=== PATIENT | female | born 1995 | race Caucasian/White ===

== ENCOUNTER 2018-01-23 10:25 | Emergency (ER) | payer MEDICAID, OTHER ==
[~2018-01-23] VITALS: Ht 160 cm; Wt 58.0 kg
[2018-01-23] MEDS ORDERED: ONDANSETRON ODT 4 MG PO ONE (11:30)
[2018-01-23 11:51] LABS: BASOPHILS # (AUTO) 0.08 x10^3/uL (0-0.3); BASOPHILS % (AUTO) 1 % (0-1); EOSINOPHILS # (AUTO) 0.05 x10^3/uL (0-0.8); EOSINOPHILS % (AUTO) 1 % (1-7); LYMPHOCYTES # (AUTO) 1.36 x10^3/uL (1-6.1); LYMPHOCYTES % (AUTO) 17 % (22-44); MD NO; MEAN CORPUSCULAR HEMOGLOBIN 30.6 pg (27.0-34.8); MEAN CORPUSCULAR HGB CONC 34.2 g/dL (32.4-35.8); MEAN CORPUSCULAR VOLUME 89.4 fL (80-100); MEAN PLATELET VOLUME 8.6 fL (7.4-10.4); MONOCYTES # (AUTO) 0.43 x10^3/uL (0-1.4); MONOCYTES % (AUTO) 5 % (2-9); NEUTROPHILS # (AUTO) 6.18 x10^3/uL (1.8-8.0); NEUTROPHILS % (AUTO) 76 % (42-75); PLATELET COUNT 259 x10^3/uL (130-400); RED BLOOD COUNT 4.96 x10^6/uL (3.82-5.3); RED CELL DISTRIBUTION WIDTH 13.3 % (9.6-15.2)
[2018-01-23 12:14] LABS: HCG UR SG 1.011 (1.003-1.030)
[2018-01-23 12:37] LABS: ANION GAP 10 mmol/L (5-15); CALCIUM 9.1 mg/dL (8.5-10.1); CHLORIDE 110 mmol/L (98-107)
[2018-01-23 12:40] LABS: ALANINE AMINOTRANSFERASE 24 U/L (12-78); CREATININE 0.55 mg/dL (0.55-1.02)
[2018-01-23 12:42] LABS: ALKALINE PHOSPHATASE 68 U/L (45-117); BILIRUBIN,TOTAL 1.6 mg/dL (0.2-1.0); TOTAL PROTEIN 7.7 g/dL (6.4-8.2)
[2018-01-23 14:52] VITALS: BP 133/88
[2018-01-23 17:27] LABS: MICROSCOPIC NOT IND
[2018-01-23 17:28] LABS: CULTURE INDICATED? NO
== END 2018-01-23 14:53 | disposition home or self-care (01) ==
LOC: ED 11:10
DX: R11.2 Nausea with vomiting, unspecified (principal); Z32.01 Encounter for pregnancy test, result positive
CPT/HCPCS: 36415; 76801; 80053; 81003; 81025; 83690; 84702; 85025; 99285